=== PATIENT | female | born 1980 | race Caucasian/White ===

== ENCOUNTER 2022-01-24 15:06 | Outpatient (CLI) | payer MEDICARE, MEDICAID ==
[2022-01-25 15:48] LABS: SARS-CoV-2 PCR by NAA Not Detected (NotDetected)
== END 2022-01-24 15:07 | disposition home or self-care (01) ==
LOC: CSHLAB 15:06
PROVIDERS: ATTEND Internal Medicine Hematology & Oncology
DX: Z20.822 Contact with and (suspected) exposure to COVID-19 (principal)
CPT/HCPCS: 87077; 87086; 87186; U0003; U0005